=== PATIENT | male | born 1980 | race Two or more races ===

== ENCOUNTER 2020-10-13 01:02 | Emergency (ER) | payer SELFPAY ==
[~2020-10-13] VITALS: Ht 175.3 cm; Wt 86.2 kg
[2020-10-13 01:30] VITALS: BP 126/78
--- NOTE | 2020-10-13 01:30 | NUR ---
ED Nurse Note: Recieved pt BIBA from streets with c/o meth abuse, pt is awake, alert and inappropriate with responses, pt is watching pornographic movies on phone and noted masturbating in bed, pt gives one word responses at times, does admit to using meth tonight, denies any other substance, does cooperate, very figity and restless but cooperative, denies chest pain, pt has high heart rate of about 150's, MD is immediately informed, denies chest pain or any pain, no sob or labored breathing noted, will resume care as ordered and closely monitor for any changes or increased distress.
[2020-10-13 01:52] LABS: BASOPHILS % (AUTO) 0.7 % (0.0-2.0); EOSINOPHILS % (AUTO) 0.1 % (0.0-3.0); HEMATOCRIT 43.8 % (42.0-52.0); HEMOGLOBIN 14.4 G/DL (14.2-18.0); LYMPHOCYTES % (AUTO) 10.5 % (20.0-45.0); MEAN CORPUSCULAR VOLUME 96 FL (80-99); MONOCYTES % (AUTO) 5.5 % (1.0-10.0); NEUTROPHILS % (AUTO) 83.2 % (45.0-75.0); PLATELET COUNT 169 K/UL (150-450); RED BLOOD COUNT 4.57 M/UL (4.70-6.10); RED CELL DISTRIBUTION WIDTH 11.8 % (11.6-14.8); WHITE BLOOD COUNT 7.3 K/UL (4.8-10.8)
[2020-10-13 02:06] LABS: ANION GAP 8 mmol/L (5-15); BLOOD UREA NITROGEN 12 mg/dL (7-18); CALCIUM 8.9 MG/DL (8.5-10.1); CARBON DIOXIDE 27 MMOL/L (21-32); CHLORIDE 103 MMOL/L (98-107); CREATININE 0.9 MG/DL (0.55-1.30); POTASSIUM 4.2 MMOL/L (3.5-5.1); SODIUM 137 MMOL/L (136-145)
[2020-10-13 02:07] LABS: ALANINE AMINOTRANSFERASE 33 U/L (12-78); ALBUMIN 4.1 G/DL (3.4-5.0); ALKALINE PHOSPHATASE 60 U/L (46-116); ASPARTATE AMINO TRANSFERASE 21 U/L (15-37); BILIRUBIN,TOTAL 0.5 MG/DL (0.2-1.0); CREATINE KINASE 290 U/L (26-308)
--- NOTE | 2020-10-13 02:15 | NUR ---
ED Nurse Note: Pt continues to rest in bed, masturbating and has not stopped since arrival here, pt remains on cardiac monitoring, heart rate of about 150's, MD aware, pt continues to deny having chest pain or any pain, also will not stop watching pornographic movies on phone, becomes hostile when attempting to take phone, IV site patent with fluids infusing, no sob or labored breathing noted, will continue to closely monitor.
[2020-10-13 02:30] VITALS: BP 145/87
[2020-10-13 02:38] LABS: APPEARANCE,URINE CLEAR; BILIRUBIN, URINE NEGATIVE (NEGATIVE); COLOR,URINE PALE YELLOW; GLUCOSE, URINE (UA) NEGATIVE (NEGATIVE); KETONES,URINE NEGATIVE (NEGATIVE); LEUKOCYTE ESTERASE ,URINE NEGATIVE (NEGATIVE); NITRITE,URINE NEGATIVE (NEGATIVE); PH,URINE 5 (4.5-8.0); PROTEIN,URINE NEGATIVE (NEGATIVE); UROBILINOGEN,URINE NORMAL MG/DL (0.0-1.0)
--- NOTE | 2020-10-13 02:39 | Emergency Room Report ---
History of Present Illness General Chief Complaint: Substance Abuse Source: EMS (Manolo De Leon MD) Present Illness HPI Patient was apparently naked in the streets. He was saying that he wanted to have sex with everyone. Police were called and then paramedics. Patient was agitated and had abnormal vital signs and therefore he was administered Versed 10 mg IM. This helped him calm down. He still not answering questions at this time. There is allegations that he has been using other drugs and alcohol. Review of prior visits here reveal that in the past he has abused substances and also alcohol. (Manolo De Leon MD) Allergies: Coded Allergies: No Known Allergies (Unverified , 11/23/19) COVID-19 Screening Contact w/high risk pt: No Experienced COVID-19 symptoms?: No COVID-19 Testing performed [employer]: No (Manolo De Leon MD) Patient History Limited by: medical condition Past Medical History: see triage record, old chart reviewed Social History: Reports: alcohol use, drug use Social History Narrative unknown living situation (however address in system) Reviewed Nursing Documentation: PMH: Agreed; PSxH: Agreed (Manolo De Leon MD) Review of Systems All Other Systems: limited (Manolo De Leon MD) Physical Exam Vital Signs Date Time Temp Pulse Resp B/P (MAP) Pulse Ox O2 Delivery O2 Flow Rate FiO2 10/13/20 01:04 98.1 150 20 143/92 (109) 98 Room Air Sp02 EP Interpretation: reviewed, normal General Appearance: well appearing, no apparent distress, non-toxic Head: normocephalic, atraumatic Eyes: bilateral eye PERRL, bilateral eye EOMI, bilateral eye Scleral Injection ENT: moist mucus membranes Neck: supple Respiratory: lungs clear, normal breath sounds Cardiovascular #1: no edema, tachycardia Cardiovascular #2: 2+ radial (R) Gastrointestinal: normal inspection, normal bowel sounds, non tender, no mass, non-distended Musculoskeletal: back normal, normal range of motion Neurologic: alert, motor strength/tone normal, oriented - X1, sensory intact, cerebellar normal, responsive Psychiatric: no suicidal/homicidal ideation, other - withdrawn and sedated Skin: no rash, warm/dry (Manolo De Leon MD) Medical Decision Making Diagnostic Impression: Primary Impression: Substance abuse Additional Impression: Tachycardia ER Course Patient altered behavior and presumed agitated delirium treated with Versed prior to presentation to the emergency department. Differential includes substance abuse, electrolyte abnormality, acute myocardial infarction, dehydration, rhabdomyolysis, exacerbation of underlying psychiatric disorder amongst others. At this time the patient is more calm and cooperative and does not require restraints. His vital signs are abnormal and he needs to have work- up including EKG, chest x-ray and labs. The patient is placed on a quality assurance monitor chassis. The patient will receive IV hydration. EKG sinus tachycardia rate [address]-T wave changes. CXR clear. Labs remarkable for + amphetamines (benzodiazepine + with Versed). Patient mastrubating. Refuses to stop and will not allow BP evaluation. Still tachycardic. Plan: sedation, continued hydration and observation. 445 Patient now more coherent and following commands. Able to answer questions. No SI or HI. Patient sleepy. Still tachycardic. Continue observation and hydration. Improving. [address] Patient signed out to Dr. aCbrera. Laboratory Tests Test 10/13/20 01:30 10/13/20 02:15 White Blood Count 7.3 K/UL (4.8-10.8) Red Blood Count 4.57 M/UL (4.70-6.10) L Hemoglobin 14.4 G/DL (14.2-18.0) Hematocrit 43.8 % (42.0-52.0) Mean Corpuscular Volume 96 FL (80-99) Mean Corpuscular Hemoglobin 31.5 PG (27.0-31.0) H Mean Corpuscular Hemoglobin Concent 32.9 G/DL (32.0-36.0) Red Cell Distribution Width 11.8 % (11.6-14.8) Platelet Count 169 K/UL (150-450) Mean Platelet Volume 10.2 FL (6.5-10.1) H Neutrophils (%) (Auto) 83.2 % (45.0-75.0) H Lymphocytes (%) (Auto) 10.5 % (20.0-45.0) L Monocytes (%) (Auto) 5.5 % (1.0-10.0) Eosinophils (%) (Auto) 0.1 % (0.0-3.0) Basophils (%) (Auto) 0.7 % (0.0-2.0) Sodium Level 137 MMOL/L (136-145) Potassium Level 4.2 MMOL/L (3.5-5.1) Chloride Level 103 MMOL/L (98-107) Carbon Dioxide Level 27 MMOL/L (21-32) Anion Gap 8 mmol/L (5-15) Blood Urea Nitrogen 12 mg/dL (7-18) Creatinine 0.9 MG/DL (0.55-1.30) Estimated Glomerular Filtration Rate > 60 mL/min (>60) Glucose Level 106 MG/DL (74-106) Calcium Level 8.9 MG/DL (8.5-10.1) Total Bilirubin 0.5 MG/DL (0.2-1.0) Aspartate Amino Transferase (AST) 21 U/L (15-37) Alanine Aminotransferase (ALT) 33 U/L (12-78) Alkaline Phosphatase 60 U/L (46-116) Total Creatine Kinase 290 U/L (26-308) Total Protein 8.1 G/DL (6.4-8.2) Albumin 4.1 G/DL (3.4-5.0) Globulin 4.0 g/dL Albumin/Globulin Ratio 1.0 (1.0-2.7) Salicylates Level 0.8 ug/mL (2.8-20) L Acetaminophen Level < 2 MCG/ML (10-30) L Serum Alcohol 85 mg/dL Urine Color Pale yellow Urine Appearance Clear Urine pH 5 (4.5-8.0) Urine Specific [place] 1.010 (1.005-1.035) Urine Protein Negative (NEGATIVE) Urine Glucose (UA) Negative (NEGATIVE) Urine Ketones Negative (NEGATIVE) Urine Blood 3+ (NEGATIVE) H Urine Nitrite Negative (NEGATIVE) Urine Bilirubin Negative (NEGATIVE) Urine Urobilinogen Normal MG/DL (0.0-1.0) Urine Leukocyte Esterase Negative (NEGATIVE) Urine RBC 2-4 /HPF (0 - 0) H Urine WBC 0 /HPF (0 - 0) Urine Squamous Epithelial Cells Few /LPF (NONE/OCC) Urine Bacteria None /HPF (NONE) Urine Opiates Screen Negative (NEGATIVE) Urine Barbiturates Screen Negative (NEGATIVE) Phencyclidine (PCP) Screen Negative (NEGATIVE) Urine Amphetamines Screen Positive (NEGATIVE) H Urine Benzodiazepines Screen Positive (NEGATIVE) H Urine Cocaine Screen Negative (NEGATIVE) Urine Marijuana (THC) Screen Negative (NEGATIVE) (Manolo De Leon MD) ER Course Assumed care of the patient from the previous provider at approximately 0600. Please refer to initial note for full history and physical exam. Briefly, 39-year-old male brought in for bizarre behavior found to be under the influence of amphetamines. He required sedation and vital signs improved. Denies SI/HI. Patient was allowed to sleep in the emergency department. He is now awake and alert and ambulating with a steady gait. Stable for outpatient follow-up. Drug resources provided. Referred to outpatient clinics as well. (Johnny Cabrera MD) EKG Diagnostic Results Rate: tachycardiac Rhythm: NSR ST Segments: no acute changes (Manolo De Leon MD) Rhythm Strip Diag. Results EP Interpretation: yes Rhythm: no PVC's, no ectopy, other - Sinus tachycardia (Manolo De Leon MD) Chest X-Ray Diagnostic Results Chest X-Ray Diagnostic Results : Chest X-Ray Ordered: Yes # of Views/Limited/Complete: 1 View Indication: Other EP Interpretation: Yes Interpretation: no consolidation, no effusion, no pneumothorax Impression: No acute disease Electronically Signed by: Electronically signed by Manolo De Leon MD (Manolo De Leon MD) Status: improved (Manolo De Leon MD) Disposition: HOME, SELF-CARE Condition: Stable Referrals: NOT CHOSEN IPA/,REFERRING (PCP) Manolo De Leon MD Oct 13, 2020 02:39 Johnny Cabrera MD Oct 13, 2020 06:11
[2020-10-13 03:30] VITALS: BP 169/107
--- NOTE | 2020-10-13 04:00 | NUR ---
ED Nurse Note: Pt continues to rest quietly in bed, awake and alert, remains inappropriate and in bed with all clothing off and masturbating while watching videos of pornographic nature, pt does answer and follow commands but is still fidigity and restless, starting to become diaphoretic, pt denies chest pain or any pain, heart rate remains elevated, all IV fluids ordered given and completed, MD aware of pt assessment, pt states he is not homeless and did not take drugs to harm self, pt continues to rest in bed, will continue to monitor.
[2020-10-13 04:30] VITALS: BP 159/104
[2020-10-13] MEDS ORDERED: LORazepam Inj 2mg/ml 1ml IV ONE (04:45)
[2020-10-13] MEDS ORDERED: DiphenhydrAMINE 50mg/ml Inj IVP ONE (04:45)
[2020-10-13] MEDS ORDERED: Haloperidol 5mg/ml Inj IM ONE (04:45)
--- NOTE | 2020-10-13 05:00 | NUR ---
ED Nurse Note: Pt continues to masterbate in bed, has not stopped since arrival, new med orders recieved, given with immediate results, pt became more awake and alert, speaking more appropriately, stopped sexual behaviors and apologetic, asking for clothing, pt does recall incidents before arrival, pt denies any suicidal or homicidal ideations, IV fluids infusing as ordered, pt assisted to bathroom, ambulated well with steady gait, pt heart rate decreased immediately after meds also, denies chest pain or any pain, 02 sat=98% on RA, will continue to monitor and pt to be discharged in am when sober and safe to go.
[2020-10-13 05:30] VITALS: BP 148/83
--- NOTE | 2020-10-13 07:10 | NUR ---
HAND-OFF: Report given to KARINA Hebert.
--- NOTE | 2020-10-13 07:11 | NUR ---
ED Nurse Note: Recieved report from KARINA Ramos. Patient is sleeping, all VSS at this time, NAD nopted.
[2020-10-13 09:03] VITALS: BP 148/83
--- NOTE | 2020-10-13 09:57 | NUR ---
ER DISCHARGE NOTE: Patient is cleared to be discharged per ERMD, pt is aox4, on room air, with stable vital signs. pt was given dc and prescription instructions, pt was able to verbalize understanding, pt id band and iv site removed without complications. pt is able to ambulate with steady gait. pt took all belongings.
--- NOTE | 2020-10-13 14:59 | Diagnostic Imaging Report ---
Indication: Shortness of breath Technique: XRAY Chest 1v Comparison: None Findings: Localizing expiratory/dependent atelectatic changes at the bases. No definite focal versus consolidation. No pleural effusion, pneumothorax. Heart size and mediastinal contours within normal limits. No acute osseous abnormality. IMPRESSION: No definite radiographic evidence of acute cardiopulmonary disease.
--- NOTE | 2020-10-13 16:20 | Cardiology Report ---
APPROVED REPORT EKG Measurement Heart [id number] <Conclusion> Sinus tachycardia Possible Left atrial enlargement Anterior infarct, age undetermined Abnormal ECG
== END 2020-10-13 09:03 | disposition home or self-care (01) ==
LOC: EDBD 01:02 → EDUNIT# 01:02 → EMR 01:21
DX: F15.10 Other stimulant abuse, uncomplicated (principal); F19.10 Other psychoactive substance abuse, uncomplicated; R00.0 Tachycardia, unspecified; F10.10 Alcohol abuse, uncomplicated; Y90.4 Blood alcohol level of 80-99 mg/100 ml
CPT/HCPCS: 36415; 71045; 80053; 80307; 81003; 82550; 85025; 93005; 96361; 96372; 96374; 96375; 99284; G0480; J1200; J1630; J7030